=== PATIENT | female | born 2000 | race American Indian/Alaskan Native ===

== ENCOUNTER 2020-12-10 23:22 | Emergency (ER) | payer SELFPAY ==
--- NOTE | 2020-12-11 02:26 | Emergency Department Report ---
Chief Complaint: Skin Rash Stated Complaint: RASH RT ARM Time Seen by Provider: 12/11/20 02:01 - HPI History of Present Illness: Patient is a 20-year-old female presents emergency room with complaints of a rash to her right upper extremity that began 5 days ago after sleeping in a hotel. She states that it is itching. She denies anyone else with the same rash. She denies any new soaps, lotions, detergents, medications, foods, anything new she can think of except for staying in the hotel. She denies any arm swelling, facial swelling, difficulty swallowing, sensation of throat closing, difficulty breathing, drainage, numbness, weakness. No past medical history. No allergies to medications. She is currently on her menstrual cycle. Vitals are normal On exam: Non toxic appearing, no acute distress atraumatic, normocephalic normal appearance of the eyes, EOMI, no periorbital edema or ecchymosis moist mucus membranes No respiratory distress, no accessory muscle use A&O x4, no focal neuro deficit skin is warm, dry, there are multiple erythematous macules/papules present to the right upper extremity, no signs of infection, no blistering, no skin necrosis, no skin denuding, nothing present in the webs of the fingers, no scaling Examination appears most consistent with bedbug bites versus insect bites No signs of scabies at this time No signs of emergent skin condition Discussed [id number] and supportive care and treatment Discussed the importance of primary care follow-up Discussed return precautions Medical screening examination performed and there is no threat to life or limb at this time - Exam Vital Signs: Vital Signs 12/11/20 01:20 Temperature 98.4 F Pulse Rate 84 Respiratory 16 Rate Blood Pressure 126/70 O2 Sat by Pulse 100 Oximetry MSE screening note: Focused history and physical exam performed. Due to findings the following was ordered: ED Disposition for MSE Clinical Impression: Insect bite Qualifiers: Encounter type: initial encounter Site of insect bite: upper arm Laterality: right Qualified Code(s): S40.861A - Insect bite (nonvenomous) of right upper arm, initial encounter Disposition: 07 MED SCREENING EXAM-LEFT Condition: Stable Instructions: Bedbugs Additional Instructions: May use cortisone ointment [id number]. May use antiitch cream [id number]. Please backup your close that you more to the hotel and seal them in a trash bag for 10 days. Any items that you are able to please wash in hot water and bleach. Follow-up with a primary care doctor. Return to emergency room for new or worsening symptoms. Referrals: [facility],MD [Primary Care Provider] - 3-5 Days JUVE LOWERY MD [Staff Physician] - 3-5 Days [facility] [Provider Group] - 3-5 Days Forms: Work/School Release Form(ED) Time of Disposition: 02:25 Print Language: INDONESIAN
[2020-12-11 04:23] VITALS: BP 125/72
== END 2020-12-11 02:31 | disposition left against medical advice (07) ==
LOC: ED 23:22
DX: S40.861A Insect bite (nonvenomous) of right upper arm, initial encounter (principal); Z53.21 Procedure and treatment not carried out due to patient leaving prior to being seen by health care provider; W57.XXXA Bitten or stung by nonvenomous insect and other nonvenomous arthropods, initial encounter; Y93.89 Activity, other specified; Y92.89 Other specified places as the place of occurrence of the external cause; Y99.8 Other external cause status

== ENCOUNTER 2022-02-03 21:37 | Outpatient (CLI) | payer OTHER, MEDICAID ==
[2022-02-03 22:00] VITALS: BP 108/58
== END 2022-02-04 00:09 ==
LOC: EEVIPCON 21:37 → TRG 21:37 → APU 21:40 → TRG 02-04 00:09
PROVIDERS: ATTEND Obstetrics & Gynecology
DX: Z34.93 Encounter for supervision of normal pregnancy, unspecified, third trimester (principal); Z3A.31 31 weeks gestation of pregnancy
CPT/HCPCS: 36415; 84112